=== PATIENT | male | born 1965 | race Caucasian/White ===

== ENCOUNTER 2022-09-28 14:23 | Outpatient (CLI) | payer OTHER | END 2022-09-28 15:30 | disposition home or self-care (01) | LOC: LAB 14:23 | PROVIDERS: ATTEND Radiology Diagnostic Radiology | DX: M27.2 Inflammatory conditions of jaws (principal) ==

== ENCOUNTER 2022-09-30 07:29 | Outpatient (CLI) | payer OTHER | END 2022-09-30 07:32 | disposition home or self-care (01) | LOC: TOM 07:29 | DX: M27.2 Inflammatory conditions of jaws (principal); M26.52 Limited mandibular range of motion; M26.53 Deviation in opening and closing of the mandible; M26.69 Other specified disorders of temporomandibular joint ==

== ENCOUNTER 2023-01-14 09:39 | Outpatient (CLI) | payer OTHER | END 2023-01-14 09:42 | disposition home or self-care (01) | LOC: LAB 09:39 | DX: R22.1 Localized swelling, mass and lump, neck (principal) ==

== ENCOUNTER 2023-01-22 08:25 | Outpatient (CLI) | payer OTHER | END 2023-01-22 08:33 | disposition home or self-care (01) | LOC: TOM 08:25 | DX: R22.1 Localized swelling, mass and lump, neck (principal) ==

== ENCOUNTER 2023-04-28 11:17 | Outpatient (CLI) | payer OTHER | END 2023-04-28 11:46 | disposition home or self-care (01) | LOC: MRI 11:17 | PROVIDERS: ATTEND General Practice | DX: M76.52 Patellar tendinitis, left knee (principal); M25.562 Pain in left knee; S80.02XA Contusion of left knee, initial encounter | CPT/HCPCS: 73721 ==

== ENCOUNTER 2024-08-22 08:09 | Outpatient (CLI) | payer OTHER ==
[2024-08-22 10:18] LABS: ALBUMIN 3.5 gm/dL (3.4-5.0); BILIRUBIN TOTAL 0.39 mg/dL (0.3-1.2); CALCIUM 8.3 mg/dL (8.5-10.1); CHOL HDL RATIO 5.7 (0-5.0); CREATININE SERUM 0.84 mg/dL (0.70-1.30); GFR 94.18; GLOBULINA 3.5 G/DL (2.4-3.5); POTASSIUM 4.12 mEq/L (3.5-5.1)
[2024-08-22 11:25] LABS: PROSTATIC SPECIFIC ANTIGEN 0.39 NG/ML (0.010-4.00); T4 FREE 0.87 NG/ML (0.76-1.46); TSH 0.989 uIU/mL (0.358-3.74)
[2024-08-22 11:28] LABS: FERRITIN 9.8 NG/ML (26-388)
[2024-08-22 12:48] LABS: VITAMIN D3 25 HYDROXY 13.72 ng/ml (30-120)
[2024-08-26 06:08] LABS: test free 2.5 pg/mL (7.2-24.0)
== END 2024-08-22 08:15 | disposition home or self-care (01) ==
LOC: LAB 08:09
PROVIDERS: ATTEND General Practice
DX: B96.1 Klebsiella pneumoniae [K. pneumoniae] as the cause of diseases classified elsewhere (principal); R70.0 Elevated erythrocyte sedimentation rate; E11.9 Type 2 diabetes mellitus without complications; E03.9 Hypothyroidism, unspecified; E29.1 Testicular hypofunction; I10 Essential (primary) hypertension; I11.9 Hypertensive heart disease without heart failure; E88.1 Lipodystrophy, not elsewhere classified; E34.9 Endocrine disorder, unspecified; E55.9 Vitamin D deficiency, unspecified; D58.9 Hereditary hemolytic anemia, unspecified; Z12.11 Encounter for screening for malignant neoplasm of colon; R97.8 Other abnormal tumor markers; R22.9 Localized swelling, mass and lump, unspecified; R50.9 Fever, unspecified; R05.9 Cough, unspecified; N39.0 Urinary tract infection, site not specified; E78.5 Hyperlipidemia, unspecified; N40.0 Benign prostatic hyperplasia without lower urinary tract symptoms; N95.1 Menopausal and female climacteric states; Z85.07 Personal history of malignant neoplasm of pancreas; D50.9 Iron deficiency anemia, unspecified; Z80.1 Family history of malignant neoplasm of trachea, bronchus and lung; E03.8 Other specified hypothyroidism; E04.2 Nontoxic multinodular goiter; M10.00 Idiopathic gout, unspecified site; M06.4 Inflammatory polyarthropathy; A64 Unspecified sexually transmitted disease; R19.7 Diarrhea, unspecified; R79.82 Elevated C-reactive protein (CRP); M05.51 Rheumatoid polyneuropathy with rheumatoid arthritis of shoulder; D68.8 Other specified coagulation defects; R78.89 Finding of other specified substances, not normally found in blood; T50.995A Adverse effect of other drugs, medicaments and biological substances, initial encounter; D82.4 Hyperimmunoglobulin E [IgE] syndrome; B17.9 Acute viral hepatitis, unspecified; Z11.4 Encounter for screening for human immunodeficiency virus [HIV]; A54.29 Other gonococcal genitourinary infections; K75.4 Autoimmune hepatitis

== ENCOUNTER → 2025-01-17 10:37 | Outpatient (CLI) | payer OTHER | END | disposition home or self-care (01) | LOC: SONOGRAMA 10:37 | PROVIDERS: ATTEND General Practice | DX: R22.9 Localized swelling, mass and lump, unspecified (principal); N50.819 Testicular pain, unspecified; C00-D49 Neoplasms ==

== ENCOUNTER 2025-01-19 14:27 | Outpatient (CLI) | payer OTHER | END 2025-01-19 14:30 | disposition home or self-care (01) | LOC: SONOGRAMA 14:27 | PROVIDERS: ATTEND General Practice | DX: K40.90 Unilateral inguinal hernia, without obstruction or gangrene, not specified as recurrent (principal); R10.30 Lower abdominal pain, unspecified ==

== ENCOUNTER 2025-04-30 14:08 | Outpatient (CLI) | payer OTHER ==
[2025-04-30 15:05] LABS: CREATININE SERUM 0.89 mg/dL (0.70-1.30)
== END 2025-04-30 14:12 | disposition home or self-care (01) ==
LOC: LAB 14:08
PROVIDERS: ATTEND Radiology Diagnostic Radiology
DX: R36.1 Hematospermia (principal)

== ENCOUNTER 2025-05-01 09:38 | Outpatient (CLI) | payer OTHER | END 2025-05-01 09:54 | disposition home or self-care (01) | LOC: MRI 09:38 | DX: R36.1 Hematospermia (principal); N20.0 Calculus of kidney | CPT/HCPCS: 72196 ==